=== PATIENT | female | born 1990 | race Caucasian/White ===

== ENCOUNTER 2016-09-18 16:46 | Emergency (ER) | payer OTHER ==
--- NOTE | ~2016-09-18 | CT4 ---
[facility] A Service of [facility] RADIOLOGY TEXT RESULTS PATIENT: KLEVER STERN LOCATION: SED : 86 UNIT #: [id number] AGE: [address]: ELIA GARCIA SEX: F ORDER DR: [id number] [place] [id number] E MR#: [id number] #: [id number] NAME: KLEVER STERN : 1990 SEX: F STUDY DATE/TIME: 09/18/2016 17:36 UNIT: SED ROOM: STUDY DESCRIPTION: CT Abd and Pelv Wo Cont Attending Physician: Elia aGrcia Ordering Physician: Elia Garcia Primary Care Physician: Blanca Primary Care Physician MEDICAL IMAGING REPORT This report is preliminary unless electronic signature is present. EXAM CT abdomen and pelvis without contrast HISTORY Abdomen pain and left flank pain for [address] abdomen and pelvis was performed without contrast. This CT exam was performed with one or more of the following radiation dose reduction techniques: automatic control, adjustment of mA and/or kV according to patient size, and iterative reconstruction. CT ABDOMEN: No renal calculi. No hydronephrosis or perinephric stranding. No perinephric fluid. The liver, gallbladder, spleen, pancreas, and adrenal glands are normal. No bowel dilatation. No ascites. Normal caliber abdominal aorta. CT PELVIS: Normal appendix. The uterus and adnexa are unremarkable. There are 2 tubal ligation clips in the right adnexa. IMPRESSION 1. No acute findings in the abdomen or pelvis. 2. No urinary calculi or obstruction. 3. Normal appendix. 4. 2 tubal ligation clips in the right adnexa. Dictated by... Yahir Greer M.D. THIS IS AN ELECTRONICALLY VERIFIED REPORT Yahir Greer M.D. at 09/19/2016 10:33 PM [facility] A Service of [facility] RADIOLOGY TEXT RESULTS PATIENT: STERN,KLEVER R LOCATION: SED : 86 UNIT #: [id number] AGE: [address]: ELIA GARCIA SEX: F ORDER DR: NAVYA/ayaka TD: 09/19/2016 02:18 JOB #: [id number] MEDICAL IMAGING REPORT Page 1 of 1
[~2016-09-18 16:46] MED LIST: ACETAMINOPHEN; AMOXICILLIN500 M1 PO; AMOXIL500 M1 PO; AZO; Azo; BACITRACIN30 GM TOP; BIRTH CONTROL PILLS; CIPRO PO; CIPRO250 MG PO; DICLEGIS DR 101 EACH PO; FERROUS SULFATE PO; KEFLEX PO; MACROBID 100 M100 MG PO; MACROBID100 MG PO; MACRODANTIN PO; MEDROL4 MG/DOSE- PO; MOTRIN600 M1 PO; NO MEDICATIONS; ORTHO TRI-7 DAYS X PO; PHENERGAN PO; PHENERGAN25 M1 PO; PHENERGAN25 MG PO; POLYTRIM O10 ML OPTH OP; PREDNISONE PO; PRENATAL MULITV1 TAB PO; PYRIDIUM PO; RONDEC DM; SEROQUEL; TYLENOL #3 PO; VOLTAREN75 MG PO; [UNRECOGNIZED DRUG - OTHER]
[2016-09-18 17:19] LABS: URINE SOURCE CLEAN CATCH
[2016-09-18 17:22] LABS: MICRO INDICATED? YES; URINE APPEARANCE HAZY; URINE BILIRUBIN NEG (NEG); URINE BLOOD 3+ (NEG); URINE COLOR YELLOW; URINE GLUCOSE NEG (NORM); URINE KETONE NEG (NEG); URINE LEUKOCYTE ESTERASE TRACE (NEG); URINE NITRATE NEG (NEG); URINE PROTEIN TRACE (NEG)
[2016-09-18 17:29] LABS: CULTURE INDICATED? YES; URINE AMORPHOUS SEDIMENT AMORP URATES; URINE BACTERIA 1+ (NEG); URINE SQUAMOUS EPITHELIAL CELL MODERATE /[HPF]
[2016-09-18 17:29] LABS: BASOPHIL# 0.1 X10e3 (0-0.3); EOSINOPHIL# 0.3 X10e3 (0-0.7); EOSINOPHIL% 2.4 % (0.0-7.0); HEMATOCRIT 36.5 % (35.0-45.0); HEMOGLOBIN 12.1 gm/dL (12.0-16.0); LYMPHOCYTE# 3.1 X10e3 (1.0-3.5); LYMPHOCYTE% 28.7 % (17.0-45.0); MEAN CORPUSCULAR HEMOGLOBIN 28.5 PG (28-34); MEAN CORPUSCULAR HGB CONC 33.2 g/dL (30-36); MEAN PLATELET VOLUME 7.6 FL (6.5-11.5); MONOCYTE# 0.8 X10e3 (0-1.0); MONOCYTE% 7.4 % (3.0-12.0); NEUTROPHIL# 6.5 X10e3 (1.5-7.1); NEUTROPHIL% 60.5 % (40-75); PLATELET COUNT 372 X10e3 (140-420); RED BLOOD COUNT 4.25 X10e (3.90-5.30); RED CELL DISTRIBUTION WIDTH 12.7 % (11.0-15.5); WHITE BLOOD COUNT 10.8 X10e3 (4.0-10.5)
[2016-09-18 17:31] LABS: DIFF IND NO
[2016-09-18 17:45] LABS: BUN/CREATININE RATIO 21.42; CALCIUM SERUM 8.8 mg/dL (8.4-10.2); CREATININE SERUM 0.7 mg/dL (0.6-1.4); GLOM FILT RATE Estimated 117.9 mL/min (>60); POTASSIUM 3.7 mmol/L (3.5-5.1)
== END 2016-09-18 19:27 | disposition home or self-care (01) ==
LOC: SED 16:46
PROVIDERS: Physician Assistant
DX: N30.00 Acute cystitis without hematuria (principal); R03.0 Elevated blood-pressure reading, without diagnosis of hypertension; Z87.442 Personal history of urinary calculi; F31.9 Bipolar disorder, unspecified; Z88.2 Allergy status to sulfonamides
CPT/HCPCS: 36415; 74176; 80048; 81003; 84703; 85025; 87086; 96361; 96374; 99284; J1885